=== PATIENT | female | born 1980 | race Caucasian/White ===

== ENCOUNTER → 2017-02-04 | Outpatient (CLI) | payer SELFPAY ==
--- NOTE | 2017-02-04 15:46 | DI ---
Indication: ITS.REASON: M79.651 RIGHT THIGH PAIN PROCEDURE: HIP RIGHT 2 VIEW: Encounter: Initial Comparison: None Findings: There is no acute fracture, dislocation or malalignment identified. Joint space appears normal. Impression: No acute osseous abnormality. .
--- NOTE | 2017-02-04 15:47 | DI ---
Indication: ITS.REASON: M79.651 RIGHT THIGH PAIN PROCEDURE: LUMBAR SPINE COMP W/O BEND: Encounter: Initial Comparison: None Findings: No acute fracture seen. There are five nonrib bearing lumbar type vertebral bodies present. The oblique views show bilateral L5 spondylolysis. There is grade 1 spondylolisthesis of L5 on S1. Mild disk space narrowing at L4-L5. The remaining disk spaces are normal. Impression: Bilateral L5 spondylolysis with spondylolisthesis. .
== END ==
LOC: IMA 14:44
PROVIDERS: ATTEND Registered Nurse
DX: M43.06 Spondylolysis, lumbar region (principal); M79.651 Pain in right thigh